=== PATIENT | male | born 1960 | race Caucasian/White ===

== ENCOUNTER → 2019-02-26 | Outpatient (CLI) | payer MEDICARE, MEDICAID ==
--- NOTE | 2019-02-26 14:07 | RADIOLOGY REPORT (SQ) ---
EXAM DESCRIPTION: HIP LEFT AP/LATERAL COMPLETED DATE/TIME: 02/26/2019 1:02 pm REASON FOR STUDY: PAIN IN LEFT HIP M25.552 PAIN IN LEFT HIP COMPARISON: None. NUMBER OF VIEWS: Two views. TECHNIQUE: AP pelvis and additional frog-leg view of the left hip. LIMITATIONS: None. FINDINGS: MINERALIZATION: Normal. LEFT HIP: No fracture or dislocation. No lytic or sclerotic osseous lesions. RIGHT HIP: No fracture or dislocation. No lytic or sclerotic osseous lesions. PUBIS AND ISCHIUM: The ilioischial and iliopectineal lines are intact. There is no diastasis of the pubic symphysis. PELVIS: No fracture. SACRUM: Intact. 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 SOFT TISSUES: Surgical clips in the pelvis that suggest prior lymph node dissection. OTHER: No other finding. IMPRESSION: No acute osseous abnormality of the pelvis and left hip. TECHNICAL DOCUMENTATION: JOB ID: [id number] [email or web address]- All Rights Reserved Reading location - IP/workstation name: [email or web address]
== END ==
LOC: OD 12:18
PROVIDERS: ATTEND Internal Medicine
DX: M25.552 Pain in left hip (principal)

== ENCOUNTER 2019-05-07 05:31 | Day surgery (SDC) | payer MEDICARE, MEDICAID ==
[2019-04-30 10:31] LABS: HEMATOCRIT 35.7 % (37.9-51.0); HEMOGLOBIN 12.1 g/dL (13.5-17.0); MEAN CORPUSCULAR HEMOGLOBIN 33.5 pg (27.0-33.4); MEAN CORPUSCULAR HGB CONC 34.1 g/dL (32.0-36.0); MEAN CORPUSCULAR VOLUME 98 fl (80-97); PLATELET COUNT 268 10^3/uL (150-450); RED BLOOD COUNT 3.62 10^6/uL (4.35-5.55); RED CELL DISTRIBUTION WIDTH 14.1 % (11.5-14.0); WHITE BLOOD COUNT 7.3 10^3/uL (4.0-10.5)
--- NOTE | 2019-04-30 11:09 | EKG REPORT ---
SEVERITY:- ABNORMAL ECG - SINUS RHYTHM BORDERLINE LEFT AXIS DEVIATION LOW VOLTAGE IN FRONTAL LEADS CONSIDER ANTEROSEPTAL INFARCT : Confirmed by: Ame Rodriguez MD 30-Apr-2019 11:08:30
[2019-04-30 11:16] LABS: ALBUMIN 3.6 g/dL (3.5-5.0); ALKALINE PHOSPHATASE 66 U/L (38-126); ANION GAP 7 (5-19); ASPARTATE AMINO TRANSFERASE 18 U/L (17-59); BILIRUBIN,DIRECT 0.1 mg/dL (0.0-0.4); BILIRUBIN,TOTAL 0.5 mg/dL (0.2-1.3); BLOOD UREA NITROGEN 13 mg/dL (7-20); CALCIUM 9.3 mg/dL (8.4-10.2); CARBON DIOXIDE 28 mmol/L (22-30); CHLORIDE 104 mmol/L (98-107); GLUCOSE 90 mg/dL (75-110); POTASSIUM 3.4 mmol/L (3.6-5.0); TOTAL PROTEIN 6.2 g/dL (6.3-8.2)
--- NOTE | 2019-04-30 11:32 | RADIOLOGY REPORT (SQ) ---
EXAM DESCRIPTION: CHEST PA/LATERAL COMPLETED DATE/TIME: 04/30/2019 11:14 am REASON FOR STUDY: PRE-OP COMPARISON: 04/17/2015 EXAM PARAMETERS: NUMBER OF VIEWS: two views TECHNIQUE: Digital Frontal and Lateral radiographic views of the chest acquired. RADIATION DOSE: NA LIMITATIONS: none FINDINGS: LUNGS AND PLEURA: The lung novak are hyperexpanded but clear. No effusions. No consolid ation. MEDIASTINUM AND HILAR STRUCTURES: No masses or contour abnormalities. HEART AND VASCULAR STRUCTURES: Heart normal size. No evidence for failure. BONES: No acute findings. HARDWARE: None in the chest. OTHER: No other significant finding. IMPRESSION: NO SIGNIFICANT RADIOGRAPHIC FINDING IN THE CHEST. TECHNICAL DOCUMENTATION: JOB ID: [id number] [email or web address]- All Rights Reserved Reading location - IP/workstation name: [email or web address]
[~2019-05-07 05:31] MED LIST: ACETAMINOPHEN 325 MG TABLET PO PRN; CEFAZOLIN SODIUM 1 GM in DEXTROSE 5%-WATER 50 ML IV PRN; LACTATED RINGERS 1000 ML IV PRN; LIDOCAINE 0.5% INJ-PF (5 MG/ML) 50 ML SDV SUBCUT PRN
[2019-05-07] MEDS ORDERED: HYDROMORPHONE HCL INJ/PF 2 MG/ML AMPULE ONE (06:57)
[2019-05-07] MEDS ORDERED: PROPOFOL INJ 200 MG/20 ML VIAL IV ONE (06:57)
[2019-05-07] MEDS ORDERED: FENTANYL CITRATE INJ/PF 100 MCG/2 ML AMPUL ONE (06:57)
[2019-05-07] MEDS ORDERED: MIDAZOLAM 2 MG/2 ML INJ ONE (06:57)
[2019-05-07] MEDS ORDERED: LIDOCAINE 2% INJ (20 MG/ML) 20 ML MDV ONE (06:59)
[2019-05-07] MEDS ORDERED: BUPIVACAINE INJ/PF LIPOSOME/PF 266 MG/20 ML SDV ONE (07:11)
[2019-05-07] MEDS ORDERED: BUPIVACAINE HCL 0.25 % INJ/PF (2.5 MG/1 ML) 30 ML VIAL ONE (07:11)
[2019-05-07] MEDS ORDERED: POTASSIUM CHLORIDE 20 MEQ/50 ML RTU IV ONE (07:45)
[2019-05-07] MEDS ORDERED: MORPHINE SULFATE 10 MG/ML INJ IV PRN (07:46)
[2019-05-07] MEDS ORDERED: FENTANYL CITRATE INJ/PF 100 MCG/2 ML AMPUL IV PRN ×3 (07:46)
[2019-05-07] MEDS ORDERED: OXYCODONE-ACETAMINOPHEN 5-325 MG TABLET PO PRN ×3 (07:46→09:30)
[2019-05-07] MEDS ORDERED: MEPERIDINE HCL/PF INJ 25 MG/1 ML DISP.SYRIN IV PRN (07:46)
[2019-05-07] MEDS ORDERED: ONDANSETRON HCL INJ/PF 4 MG/2 ML SDV IV PRN (07:46)
[2019-05-07] MEDS ORDERED: DIPHENHYDRAMINE HCL 50 MG/ML VIAL IV PRN (07:46)
[2019-05-07] MEDS ORDERED: BUPIVACAINE HCL 0.25 % INJ/PF (2.5 MG/1 ML) 30 ML VIAL INJ ONE ×2 (08:31)
[2019-05-07] MEDS ORDERED: BUPIVACAINE INJ/PF LIPOSOME/PF 266 MG/20 ML SDV INJ ONE (08:32)
--- NOTE | 2019-05-07 09:17 | Operative Report ---
Operative Report DATE OF SURGERY: 05/07/19 PREOPERATIVE DIAGNOSIS: Left inguinal hernia POSTOPERATIVE DIAGNOSIS: Same with communicating hydrocele, and post radiation scar of the inguinal area OPERATION: 1. Left inguinal herniorrhaphy. 2. Excision of indirect hernia sac remnant. 3. Region of cord lipoma. 4. Left inguinal herniorrhaphy with propylene onlay mesh SURGEON: KARISSA CANTU 1ST AUTO CLEANER: KEVON ZEPEDA ANESTHESIA: GA TISSUE REMOVED OR ALTERED: Cord lipoma; fragment of peritoneal sac COMPLICATIONS: None ESTIMATED BLOOD LOSS: 10 cc INTRAOPERATIVE FINDINGS: See below PROCEDURE: The patient was seen in the preop holding area with a left inguinal area was marked. Then taken to the main operating room where general anesthesia was induced. Skin hair clipped, left inguinal area lower abdomen, scrotum prepped and draped in sterile fashion Surgical plan and surgical timeout were conducted. Of note the patient had previous right inguinal herniorrhaphy, open, and a vertically oriented super pubic scar. He also had a inking consistent with external beam radiation. The left inguinal area was palpated, and anatomic landmarks identified. Skin was anesthetized with quarter percent Marcaine. Standard diagonally oriented left inguinal herniorrhaphy incision was made with a knife. Subcutaneous tissue and Fabian's fascia was divided with knife and scissors. The internal oblique aponeurosis was anesthetized with quarter percent Marcaine, then opened along the direction of its fibers. We worked from lateral to medial, there was significant scar tissue medially in the area of the external inguinal ring. There was significant fibrotic tissue and distortion of the external ring. We cut open the ring, and developed the superior and inferior fascial flaps. Medially towards the pubic symphysis there was the most amount of scar tissue. The left nerve was identified and preserved this dissection. Initial inspection of the inguinal canal revealed no obvious hernia sac or masses. We carefully mobilized the contents of the inguinal canal, surrounded them with a Gricel drain. We turned our attention towards the inferior medial aspect of the dissection, carefully inspecting for a hernia sac. Of note the floor the inguinal canal was intact but patulous. Repeat manipulation of the cord structures caused to the left testicle to elevated into the field of dissection. Manipulation of the tissue further reveal the patient in fact had a moderate size hydrocele. This was extending up towards the mid to upper hemiscrotum. The hydrocele tapered cephalad to a very thin cord. This was open and in fact communicated with a hydrocele. However finding the tract going towards the peritoneal cavity was rather challenging. The processes vaginalis was very attenuated, and thin. The dissected the cephalad most portion of the hydrocele away from the lower portion, leaving the left testicle and her segment of the hydrocele in the left hemiscrotum, and teased the cephalad component for several centimeters towards the peritoneal cavity. Unfortunately the tapered to virtually no facial tissue so this fragment of the vessels vaginalis was amputated and sent to pathology as hernia sac. We checked to ensure that the left testicle remained in the left hemiscrotum. We inspected the cord structures carefully and did identify a small to moderate sized lipoma which was excised carefully from the vas deferens, and tied off at its cephalad base with a 2-0 Vicryl suture. We felt that the inguinal canal been thoroughly explored. I elected to reinforce the floor the inguinal canal with a single layer of polypropylene mesh. This was trimmed to a teardrop configuration and sewn to the floor the inguinal canal including conjoined tendon and Poupart's ligament with approximately 8-0 PDS sutures. An opening was made in the lateral aspect of the mass with a keyhole to accommodate the cord structures. The new internal ring is of appropriate caliber and not too tight. Significant bleeding. At the conclusion, we felt that the repair was sound. We ensured the left testicle was in the left hemiscrotum. We now closed the external oblique aponeurosis with a 2-0 Vicryl Fabian's fascia with 2-0 Vicryl skin with 3-0 Vicryl, benzoin and Steri-Strips. 20 cc of full-strength Exparel was deployed into the subcutaneous tissues. Patient tolerated the procedure well, extubated, and taken recovery room stable condition. The physician bindery assistant, Ms. Grubbs, provided assistance during this case by: Assisting with retracting tissue, instillation of local anesthesia and closure of fascial layers, and skin incision.
--- NOTE | 2019-05-07 09:29 | Discharge Summary ---
Discharge Summary (SDC) - Discharge Final Diagnosis: Open left inguinal hernia Date of Surgery: 05/07/19 Discharge Date: 05/07/19 Condition: Good Treatment or Instructions: [facility] [address], [place] [address] Discharge Instructions: Open Abdominal Procedures (Hernia, Bowel Surgery) 1.General Information: a. DO NOT DRIVE a car or operative machinery for 1-2 weeks or as long as taking Narcotic pain medication. b. DO NOT consume alcohol, tranquilizers, sleeping medication, or any non- prescribed medication for 24 hours unless approved by your doctor or as long as taking pain medication. c. DO NOT make important decisions or sign any important papers for the first 24 hours after surgery. d. When discharged home the same day as surgery have a responsible person with you the first night. 2.Activity Restriction: 6 weeks a. Avoid heavy lifting (> 10-15 lbs), straining abdominal muscles and sports, mowing lawn, vacuum turkey cleaner and bending over a lot. b. Walking is important to avoid blood clots in the legs and deep breathing can prevent pneumonia. c. If it fine to go for walks, up and down steps, and ride in a car. 3.Treatment: a. You may shower the day after surgery and shower then daily is fine, but you should not bathe in a tub or go swimming for 2 weeks. Leave skin glue intact. Do not scrub incision. b. Do not use oils, powders, or lotion on your incision. 4.Medications: a. You may take prescription tablets for pain if needed, one every 6 hours (Toradol_). Do not take additional NSAIDs with the Toradol. You may take Tylenol with the Toradol c. You may resume all normal medications unless a change is specified by your doctors. 5.Diet: a. If going home the same day as surgery start with clear liquids, and if you do well then advance to normal foods low inf fat and protein. Smaller portion size may be morel the first night. 6.Notify Physician If: a. Pain is not relieved by pain medication b. Persistent nausea and vomiting c. Chills, fever (above 101) d. Persistent bleeding or swelling at the operative site e. Unable to urinate for 6-8 hours f. Increased redness, drainage, or foul smelling discharge from incision 7. Follow Up Care: a. Please call our office to schedule an appointment with your doctor for 2 weeks. In the event of any postoperative problems or questions you may call our office during business hours or the On-Call surgeon through the bolt machine operator at [facility]. [facility] [phone] [facility] [phone] (Ask for the surgeon stock and station agent) b. I understand the instructions for my postoperative care as described above and a copy has been given to me. Witness Patient/Significant Other Date Prescriptions: Ketorolac Tromethamine [Toradol 10 mg Tablet] 10 mg PO Q6HP PRN #20 tablet PRN Reason: Referrals: SHELIA ONTIVEROS MD [Primary Care Provider] - Discharge Diet: As Tolerated Discharge Activity: Balance Activity w/Rest, No Lifting Over 10 Pounds, No Lifting/Push/Pulling, Walk Frequently Report the Following to Your Physician Immediately: Increase in Pain, Fever over 101 Degrees, Unusual Bleeding, Redness, Swelling, Warmth, Increased Soreness, Drainage-Foul Smelling
[2019-05-07] MEDS ORDERED: DEXAMETHASONE SOD PHOSPHATE INJ 4 MG/1 ML VIAL ONE (09:39)
[2019-05-07] MEDS ORDERED: ONDANSETRON HCL INJ/PF 4 MG/2 ML SDV ONE (09:39)
[2019-05-07] MEDS ORDERED: OXYCODONE-ACETAMINOPHEN 5-325 MG TABLET ONE (10:16)
[2019-05-07 11:55] VITALS: BP 157/92
[2019-05-07] MEDS ORDERED: SUCCINYLCHOLINE CHLORIDE INJ 200 MG/10 ML VIAL ONE (12:51)
[2019-05-07] MEDS ORDERED: ROCURONIUM BROMIDE INJ 50 MG/5 ML VIAL IV ONE (12:51)
== END 2019-05-07 11:20 | disposition home or self-care (01) ==
LOC: OROUT 05:31
PROVIDERS: ATTEND Surgery
DX: K40.90 Unilateral inguinal hernia, without obstruction or gangrene, not specified as recurrent (principal); N43.3 Hydrocele, unspecified; Z79.899 Other long term (current) drug therapy; I10 Essential (primary) hypertension; J44.9 Chronic obstructive pulmonary disease, unspecified; F17.210 Nicotine dependence, cigarettes, uncomplicated; Z79.51 Long term (current) use of inhaled steroids; Z85.46 Personal history of malignant neoplasm of prostate; Z86.718 Personal history of other venous thrombosis and embolism; D17.6 Benign lipomatous neoplasm of spermatic cord
CPT/HCPCS: 93005; 36415 ×2; 84132; 85027; 80053; 88302 ×2; 71046; 93010; 49505; C1781; J2250; J3490 ×2; J0690; J1100; A9270; J1170; J0330; J2405; J7060; J2704; C9290; 830; J3010